=== PATIENT | female | born 1955 | race Caucasian/White ===

== ENCOUNTER → 2018-02-01 12:19 | Outpatient (CLI) | payer OTHER, SELFPAY ==
--- NOTE | 2018-02-01 12:22 | DI.RAD.S_ITS ---
PROCEDURE: XR CHEST 2V INDICATIONS: chest pain, cough TECHNIQUE: 2 views of the chest were acquired. COMPARISON: [facility], , CHEST 2 VIEW, 07/02/2017, 9:54. FINDINGS: Surgical changes and devices: None. Lungs and pleura: No pleural effusions or pneumothorax. Lungs are clear. Mediastinum: Mediastinal contours are normal. Heart size is normal. Bones and chest wall: No suspicious bony abnormalities. Soft tissues appear unremarkable. IMPRESSION: No acute pulmonary process. Dictated by: Erica Olguin M.D. on 02/01/2018 at 13:01 Approved by: Erica Olguin M.D. on 02/01/2018 at 13:01
== END ==
PROVIDERS: Visit Provider Physician Assistant
DX: R07.9 Chest pain, unspecified (principal); R05 Cough
CPT/HCPCS: 71046

== ENCOUNTER → 2018-02-02 11:44 | Outpatient (CLI) | payer OTHER, SELFPAY ==
[2018-02-02 12:14] LABS: Add Manual Diff / Slide Review NO; Basophils Percent Auto 0.3 % (0-2); Eosinophils Percent Auto 0.1 % (2-4); Hematocrit 37.3 % (36-46); Hemoglobin 12.6 g/dL (12.0-16.0); Lymphocytes Percent Auto 9.1 % (25-40); Mean Corpuscular HGB Conc 33.8 % (30-36); Mean Corpuscular Hemoglobin 29.1 PG (26-34); Neutrophils Absolute Auto 13600 /uL (3000-5900); Neutrophils Percent Auto 87.5 % (50-75); Platelet Count 242 X10^3/uL (150-400); Red Blood Cell Count 4.34 X10^6/uL (4.0-5.2); Red Cell Distribution Width 13.8 % (11.6-14.8); White Blood Cell Count 15.6 X10^3/uL (4.5-11.0)
[2018-02-02 12:51] LABS: C-Reactive Protein Quant < 0.5 mg/dL (<1.0)
== END ==
PROVIDERS: PCP Family Medicine; Visit Provider Physician Assistant
DX: R07.9 Chest pain, unspecified (principal)
CPT/HCPCS: 36415; 85025; 86140

== ENCOUNTER → 2019-08-19 11:06 | Outpatient (CLI) | payer OTHER, SELFPAY ==
[2019-08-22 19:36] LABS: COVID19 Sendout Not Detected (Not Detected)
== END ==
PROVIDERS: PCP Family Medicine; Visit Provider Registered Nurse
DX: R50.9 Fever, unspecified (principal)
CPT/HCPCS: 87635

== ENCOUNTER → 2019-08-19 11:21 | Outpatient (CLI) | payer OTHER, SELFPAY ==
--- NOTE | 2019-08-19 11:23 | DI.US.S_ITS ---
PROCEDURE: US ABDOMEN LIMITED INDICATIONS: LOWER ABDOMINAL PAIN TECHNIQUE: Real-time focused scanning was performed of the abdomen, with image documentation. COMPARISON: None. FINDINGS: Liver measures 15.2 cm in length. There is a hyperechoic possible hemangioma within the right lobe measuring 2.0 x 2.1 x 2.3 cm with no internal vascularity. Gallbladder unremarkable. No sonographic Li's sign. Gallbladder wall thickening or pericholecystic fluid. No evidence of intra-or extrahepatic bile duct dilatation Pancreas grossly unremarkable IMPRESSION: Probable hemangioma involving the right hepatic lobe although technically nonspecific and recommend continued surveillance with 6 month interval ultrasound for 2 years, given the absence of any relevant comparison studies Dictated by: Harley Rivera M.D. on 08/19/2019 at 13:32 Approved by: Harley Rivera M.D. on 08/19/2019 at 13:36
[2019-08-19 12:14] LABS: Add Manual Diff / Slide Review NO; Basophils Absolute Auto 100 /uL (0-100); Basophils Percent Auto 0.9 % (0-2); Eosinophils Absolute Auto 100 /uL (0-450); Eosinophils Percent Auto 1.3 % (2-4); Hemoglobin 13.3 g/dL (12.0-16.0); Lymphocytes Absolute Auto 2700 /uL (1100-4500); Mean Corpuscular HGB Conc 34.2 % (30-36); Mean Corpuscular Hemoglobin 29.6 PG (26-34); Mean Corpuscular Volume 86.6 fL (80-100); Monocytes Absolute Auto 600 /uL (0-900); Monocytes Percent Auto 6.1 % (3-14); Neutrophils Absolute Auto 5600 /uL (1500-7000); Neutrophils Percent Auto 61.7 % (50-75); Platelet Count 245 X10^3/uL (150-400); Red Cell Distribution Width 14.8 % (11.6-14.8)
[2019-08-19 12:24] LABS: BUN Creatinine Ratio 15.5 (6-22); Blood Urea Nitrogen 15 mg/dL (7-17); Calcium 9.2 mg/dL (8.4-10.2); Carbon Dioxide 26 mmol/L (22-32); Chloride 109 mmol/L (98-107); Estimated Glomerular Filt Rate 57.6 mL/min (>60); Glucose 92 mg/dL (80-110); HEMOLYSIS < 15 (0-50); Potassium 5.1 mmol/L (3.4-5.1); Sodium 139 mmol/L (137-145)
== END ==
PROVIDERS: PCP Family Medicine; Referring Provider Registered Nurse; Visit Provider Registered Nurse
DX: R10.30 Lower abdominal pain, unspecified (principal); R50.9 Fever, unspecified
CPT/HCPCS: 36415; 76705; 80048; 85025; 87635